=== PATIENT | male | born 1960 | race Caucasian/White ===

== ENCOUNTER → 2017-01-04 | Outpatient (CLI) | payer OTHER ==
[~2017-01-04] MED LIST: ALLOPURINOL; ALLOPURINOL 10100 M1 PO; ASPIRIN325 PO; BENAZEPRIL; BENAZEPRIL-HCT1 EA10 PO; COLACE100 MG PO; INDOMETHACIN 5050 M1 PO; INDOMETHACIN 5050 MG PO; PAXIL10 MG; PEPCID20 MG PO
== END ==
LOC: CAT 07:10
DX: Z13.6 Encounter for screening for cardiovascular disorders (principal)